=== PATIENT | female | born 1975 | race African-American/Black ===

== ENCOUNTER 2022-12-27 09:38 | Emergency (ER) | payer OTHER ==
[~2022-12-27] VITALS: Ht 172.7 cm; Wt 122.7 kg
[~2022-12-27 09:38] MED LIST: CETI-450 PO; LISI-893 PO; OMEP20 PO
[2022-12-27 09:40] VITALS: TEMP 98.6
[2022-12-27] MEDS ORDERED: LISI-894 PO (09:45)
[2022-12-27] MEDS ORDERED: VITAMIN D PO (09:46)
[2022-12-27] MEDS ORDERED: KETOROLAC TROMETHAMINE 60 MG/2 ML VIAL IM ONE (12:00)
[2022-12-27] MEDS ORDERED: IBUP-1554 PO (12:51)
[2022-12-27] MEDS ORDERED: ACET-2080 PO ×2 (12:51→12:52)
[2022-12-27 13:38] VITALS: BP 118/70; PULSE 85; RESP 16
== END 2022-12-27 13:40 | disposition home or self-care (01) ==
LOC: EMS 09:44
DX: S53.401A Unspecified sprain of right elbow, initial encounter (principal); I10 Essential (primary) hypertension; Z90.49 Acquired absence of other specified parts of digestive tract; Z98.890 Other specified postprocedural states; Z88.8 Allergy status to other drugs, medicaments and biological substances; W18.30XA Fall on same level, unspecified, initial encounter; Y93.89 Activity, other specified; Y92.89 Other specified places as the place of occurrence of the external cause; Y99.8 Other external cause status
CPT/HCPCS: 99283; 73080; J1885